=== PATIENT | male | born 2000 | race Caucasian/White ===

== ENCOUNTER 2022-05-22 11:51 | Emergency (ER) | payer BC, SELFPAY ==
[2022-05-22 11:57] VITALS: BP 129/73; PULSE 75; RESP 14; TEMP 36.6; O2SAT 100; BMI 19.6
--- NOTE | 2022-05-22 12:24 | ED_ITS ---
HPI - General Adult General Chief complaint: Extremity Pain/Injury, Lower Stated complaint: L big toenail falling off Time Seen by Provider: 05/22/22 12:06 Source: patient Mode of arrival: ambulatory Limitations: no limitations History of Present Illness HPI narrative: 22-year-old male presents to the emergency department with right great toenail hanging. Reports that he had a skiing accident in January and had there is no subungual hematoma, this was not drained and he did not seek medical care. He states that he was running a race yesterday and started to feel the nail come loose. It is now hanging at 1 edge and is slightly tender. There is no surrounding redness, no purulent drainage. He is running no fever and is feeling well. No new trauma or injury. He was uncertain as to where to go from here with the toenail. It is not impairing his ability to run, he walked over here from [place] which is a couple of miles. Has not used any Tylenol or ibuprofen for pain. He has not applied any antibiotic ointment but did cover with Band-Aids which did make the nail feel more secure. He states that his past medical history is benign, no major long-term health problems, he takes no prescription medications. He has no pertinent travel. Denies any prior foot surgeries. Non pertinent allergy to amoxicillin reviewed. Related Data Home Medications Medication Instructions Recorded Confirmed No Known Home Medications 05/22/22 05/22/22 Allergies Allergy/AdvReac Type Severity Reaction Status Date / Time amoxicillin Allergy Verified 05/22/22 11:57 Review of Systems Narrative: Denies any other generalized, musculoskeletal, skin, lymphatic or hematological changes. Exam Const: Vital Signs, click to edit/add: Vital Signs - 24 hr 05/22/22 11:57 Temperature 97.9 F Pulse Rate [Right Pulse Oximeter] 75 Respiratory Rate 14 Blood Pressure [Ri ght Upper Arm] 129/73 Pulse Oximetry 100 Oxygen Delivery Me thod Room Air Documenting provider has reviewed patient's vital signs: yes Common normals: no apparent distress and alert General appearance: cooperative, comfortable and well kempt HENMT: Common normals: normocephalic Head and scalp: normocephalic Eye: Other: Normal eye contact and days. Conjunctiva appear normal. Resp: Common normals: normal respiratory effort Effort & inspection: able to speak in complete sentences Cardio: Other: Regular DP pulses on foot with normal capillary refill. Regular rate and rhythm. Extremity: Other: Right foot and ankle with no effusions or deformity. Normal range of motion. Normal capillary refill and DP pulses. Toes 2 through 5 appear normal. Right great toe with hanging nail, joint only at medial great toe edge. Evidence of prior injury with subungual hematoma. I retract this gently to look underneath and the new nail is coming in nicely with some dry skin, no surrounding redness, drainage or other abnormality. Ingrown to the right medial great toe skin slightly but with gentle traction moves easily. No significant tenderness Neuro: Sensorium/orientation: alert Motor exam: no movement abnormalities noted Psych: Appearance: well kempt Attitude: engaged Activity/motor behavior: appropriate eye contact Insight: insight good Judgement: judgment good Skin: Narrative: Hanging right great toenail as described ago of with no surrounding redness, purulent drainage, swelling or tenderness. No rashes. Course Vital Signs Vital signs: Initial Vital Signs Temperature 97.9 F 05/22/22 11:57 Temperature Source Temporal Artery Scan 05/22/22 11:57 Pulse Rate 75 05/22/22 11:57 Respiratory Rate 14 05/22/22 11:57 Blood Pressure 129/73 05/22/22 11:57 Blood Pressure Mean 91 05/22/22 11:57 Blood Pressure Position Sitting 05/22/22 11:57 Pulse Oximetry 100 05/22/22 11:57 Oxygen Delivery Method Room Air 05/22/22 11:57 Vital Signs Temperature 97.9 F 05/22/22 11:57 Pulse Rate 75 05/22/22 11:57 Respiratory Rate 14 05/22/22 11:57 Blood Pressure 129/73 05/22/22 11:57 Pulse Oximetry 100 05/22/22 11:57 Oxygen Delivery Method Room Air 05/22/22 11:57 Temperature 97.9 F 05/22/22 11:57 Pulse Rate 75 05/22/22 11:57 Respiratory Rate 14 05/22/22 11:57 Blood Pressure 129/73 05/22/22 11:57 Pulse Oximetry 100 05/22/22 11:57 Oxygen Delivery Method Room Air 05/22/22 11:57 Medical Decision Making MDM Narrative Medical decision making narrative: Discussed findings with patient, no signs of infection or complication. Discussed how the new nail is coming in nicely. Conservative management would be appropriate but since he is a runner I do worry about him traumatically tearing the hanging nail and causing worse injury. We discussed options and he is interested in removal of the hangnail for safety reasons. I offer anesthesia but let him know that since that is not really anatomically attached to the side skin is rather just slightly ingrown from his running style, we could just gently pull it away. He elects for this management. With very gentle traction I am able to remove the remaining nail from the medial edge with no significant instrumentation is needed, no bleeding encountered. It was already free at the proximal, distal and lateral edges. Tolerated this very well. It is then covered with antibiotic ointment and 3 Band-Aids. Counseled to leave the current dressing on for the next 12 hours, then may remove and replace in the same fashion, 3 Band-Aids and a packet of antibiotic ointment was dispensed to him. He may continue running and exercising as needed. Signs and symptoms of infection were reviewed as indications to come to ED. Okay to use Tylenol or ibuprofen as needed for pain control. Discharge Plan Discharge Clinical Impression: Avulsed toenail Patient Disposition: Home, Self-Care Condition: Improved Instructions: Nail Avulsion (ED) Additional Instructions: The remainder of the nail removed without any complication. It is normal to have a small amount of oozing of blood, but should stop within a couple of hours. I have applied some antibiotic ointment and Band-Aids. As we discussed, try to leave these on for the next 12 hours. Change the bandage tomorrow morning and wrap in the same fashion as I have. Being on Tuesday, you only need to apply the Band-Aid and ointment if there is still oozing or if it is more comfortable. Watch for signs of severe redness, significant amounts of pus drainage. The new nail will continue to grow in but will be several months before it looks normal. The flaky skin will follow-up on its own in time. You do not need to do anything extra. You managed the nail hematoma perfectly. In the future, if you come in within her 3-4 hours of the accident, we can actually use a technique to poke a hole into the top of the nail and drain out the hematoma to prevent you from losing it like this. It is quite simple and actually makes the toe hurt less. Otherwise, always let the nail fall off on its own as you did with this episode. It is okay to trim away any hanging part of the nail in the future to prevent it from tearing. It is okay to use Tylenol and/or ibuprofen as needed for any discomfort in the next few days. Activity Level: No Restrictions Discharge Diet: Regular Prescriptions: No Action No Known Home Medications Stand Alone Forms: MyHealth Info Instructions
== END 2022-05-22 12:57 | disposition home or self-care (01) ==
LOC: ED 12:46
PROVIDERS: Emergency Provider Family Medicine
DX: S91.201A Unspecified open wound of right great toe with damage to nail, initial encounter (principal)
CPT/HCPCS: 11730; 99282; 99283